=== PATIENT | female | born 1935 | race Caucasian/White ===

== ENCOUNTER 2016-11-30 16:38 | Emergency (ER) | payer MEDICARE, BC | END 2016-11-30 19:45 | disposition home or self-care (01) | LOC: ER 16:38 | DX: R42 Dizziness and giddiness (principal); S00.83XA Contusion of other part of head, initial encounter; S60.211A Contusion of right wrist, initial encounter; W19.XXXA Unspecified fall, initial encounter; Z79.82 Long term (current) use of aspirin; Z79.899 Other long term (current) drug therapy | CPT/HCPCS: 36415; 70450; 70486; 80053; 81001; 85025; 87088; 93005 ==